=== PATIENT | female | born 1975 | race Hispanic/Latino ===

== ENCOUNTER 2018-08-31 11:40 | Emergency (ER) | payer SELFPAY ==
[2018-08-31 11:49] VITALS: BMI 20.5
[2018-08-31 11:52] VITALS: BP 109/67; PULSE 93; RESP 18; TEMP 97.4; O2SAT 100
[2018-08-31] MEDS ORDERED: Sodium Chloride 0.9% 1,000 ML IV ONE (13:07)
--- NOTE | 2018-08-31 13:56 | C.PDOC ---
History Of Present Illness 42 year old female presents to the emergency department with complaints of not feeling well since last night. Patient reports symptoms of body pain, vomiting, dizziness, diarrhea, and abdominal pain. Patient states that she has not received the flu vaccination this season. She admits to taking Dayquil for the symptoms with minimal relief. Time Seen by Provider: 08/31/18 13:02 Chief Complaint (Nursing): Dizziness/Lightheaded History Per: Patient History/Exam Limitations: no limitations Onset/Duration Of Symptoms: Days Current Symptoms Are (Timing): Still Present Past Medical History Reviewed: Historical Data, Nursing Documentation, Vital Signs Vital Signs: Last Vital Signs Temp 97.4 F L 08/31/18 11:50 Pulse 93 H 08/31/18 11:50 Resp 18 08/31/18 11:50 BP 109/67 08/31/18 11:50 Pulse Ox 100 08/31/18 11:50 - Medical History PMH: No Chronic Diseases Surgical History: No Surg Hx Family History: States: No Known Family Hx - Social History Hx Alcohol Use: No Hx Substance Use: No - Immunization History Hx Tetanus Toxoid Vaccination: Yes Hx Influenza Vaccination: No Hx Pneumococcal Vaccination: No Review Of Systems Except As Marked, All Systems Reviewed And Found Negative. Constitutional: Positive for: Malaise Gastrointestinal: Positive for: Vomiting, Abdominal Pain, Diarrhea Neurological: Positive for: Headache Physical Exam - Physical Exam Appears: Non-toxic, No Acute Distress Skin: Normal Color, Dry Head: Atraumatic, Normacephalic Eye(s): bilateral: Normal Inspection, PERRL, EOMI Oral Mucosa: Moist Neck: Normal, Supple Chest: Symmetrical, No Tenderness Cardiovascular: Rhythm Regular, No Murmur Respiratory: No Rales Gastrointestinal/Abdominal: Soft, Tenderness (minimal epigastric tenderness), No Guarding, No Rebound Extremity: Normal ROM Neurological/Psych: Oriented x3, Normal Speech, Normal Cognition ED Course And Treatment O2 Sat by Pulse Oximetry: 100 (RA) Pulse Ox Interpretation: Normal Medical Decision Making Medical Decision Making: Plan: Chemistry Bloodwork Protonix 40mg IVP NaCl IV Fluids Tylenol 975mg PO Zofran 4mg IVP Influenza A B Serology HCG Qualitative Urine Urinalysis Patient eloped after labs ordered. Disposition - Disposition Disposition: ELOPEMENT - ER ONLY Disposition Time: 13:00 Condition: UNKNOWN Forms: [facility] (Eth[place]ian) - Clinical Impression Clinical Impression: Dizziness - Scribe Statement The provider has reviewed the documentation as recorded by the Scribe (Sharad Triana) Provider Attestation: All medical record entries made by the Scribe were at my direction and personally dictated by me. I have reviewed the chart and agree that the record accurately reflects my personal performance of the history, physical exam, medical decision making, and the department course for this patient. I have also personally directed, reviewed, and agree with the discharge instructions and disposition.
== END 2018-08-31 14:13 | disposition left against medical advice (07) ==
LOC: C.ER 11:40
DX: R42 Dizziness and giddiness (principal)